=== PATIENT | female | born 1975 | race American Indian/Alaskan Native ===

== ENCOUNTER 2024-07-18 03:06 | Inpatient (IN) | payer BC, SELFPAY ==
[2024-07-18] VITALS (15 sets, daily range): BP systolic 103–131; BP diastolic 54–87; PULSE 64–93; RESP 15–24; TEMP 36.6–36.9; O2SAT 94–99; BMI 38.4; BMI 39.7
--- NOTE | 2024-07-18 03:21 | PD.EDABDPN ---
ED Abdominal Pain RME/HPI General Chief Complaint: Abdominal Pain Stated complaint: ABDOMINAL PAIN Time seen by provider: 07/18/24 03:24 Arrival date/time: 07/18/24 03:06 RME / HPI RME / HPI narrative: This section includes all my notes and documentations, including HPI, PE, and ED course. River Soriano MD HPI: 48 y/o female with SHx section, Cholecystectomy, and Hysterectomy and Hx of Leukemia, Gall Bladder Disease, Diverticulosis, Obstructive Bowel, Hiatal Hernia, Gastroesophageal Reflux Disease, Obesity, and Kidney Stones presents to ED c/o upper abdominal pain that radiates up to her chest and vomiting x approximately 4 days with vomiting. Last BM was the day before yesterday and has not been passing gas since. Denies hematuria, dysuria, or difficulty urinating. No other complaints. ROS: All negative except as documented in HPI. Physical Exam: General: Alert and oriented. In severe pain. Eyes: Conjunctivae and lids clear. ENT: No nasal congestion. Neck: Supple. Heart: RRR. Lungs: No respiratory distress. Good air movement. No rhonchi, wheezing, rales. Abdomen: Severe abdominal tenderness, worse in the upper abdominal area. Normal bowel sounds. No distension. No rebound or guarding. Back: No CVA tenderness. Skin: Warm and dry. Neuro: Alert and oriented X 3. I ordered IV fluid, Zofran, Toradol, Dilaudid, Rocephin, and diagnostic tests. At 6 AM on 07/18/2024, the care of the patient was transferred to Dr. BERGERON. River Soriano MD Related Data Home Medications ?Medication ?Instructions ?Recorded ?Confirmed albuterol sulfate 90 mcg/actuation 2 puff inhalation Q6HR PRN 04/20/16 12/30/20 aerosol inhaler (Proventil HFA) WHEEZING #0 inhalations budesonide 0.5 mg/2 mL suspension 0.5 mg inhalation BID PRN asthma 12/30/20 12/30/20 for nebulization cetirizine 10 mg tablet (Zyrtec) 10 mg PO QDAY 12/30/20 12/30/20 fluticasone propionate 50 2 spray intranasal QDAY PRN 12/30/20 12/30/20 mcg/actuation nasal Allergy Symptoms spray,suspension ibuprofen 600 mg tablet 600 mg PO BID PRN Pain 12/30/20 12/30/20 omeprazole 20 mg capsule,delayed 20 mg PO QDAY 12/30/20 12/30/20 release peg 15 %-potass chl 0.17 %-propyl 1 ea intranasal BID 12/30/20 12/30/20 gly 20 %-sodium chl 0.22 % nasal gel (Rhinase) Previous Rx's ?Medication ?Instructions ?Recorded meloxicam 7.5 mg tablet 7.5 mg PO QDAY #7 tabs 07/25/23 Allergies Allergy/AdvReac Type Severity Reaction Status Date / Time banana Allergy Severe ANAPHYLAXSI Verified 07/25/23 05:55 S doxycycline Allergy Severe Hives Verified 07/25/23 05:55 erythromycin base Allergy Severe RASH/VOMITI Verified 07/25/23 05:55 NG kiwi Allergy Severe Anaphylaxis Verified 07/25/23 05:55 latex Allergy Severe Hives Verified 07/25/23 05:55 lidocaine Allergy Severe Hives Verified 07/25/23 05:55 melon Allergy Severe Anaphylaxis Verified 07/25/23 05:55 nut - unspecified Allergy Severe Anaphylaxis Verified 07/25/23 05:55 peach Allergy Severe Anaphylaxis Verified 07/25/23 05:55 Penicillins Allergy Severe Hives Verified 07/25/23 05:55 prilocaine Allergy Severe Hives Verified 07/25/23 05:55 shellfish derived Allergy Severe Anaphylaxis Verified 07/25/23 05:55 Review of Systems Review of Systems Systems Reviewed: All systems reviewed, normal except as documented Past Medical History Past Medical History NEUROLOGIC: Positive Neurological Disorders, Migraine and Head Trauma CARDIAC: Positive Cardiac Disorders and Varicose Veins RESPIRATORY: Positive Asthma GASTROINTESTINAL: Positive Gastrointestinal Disorders, Gall Bladder Disease, Diverticulosis, Obstructive Bowel, Hiatal Hernia, Gastroesophageal Reflux Disease and Obesity GENITOURINARY: Positive Genitourinary Disorders and Kidney Stones REPRODUCTIVE: Positive Previous Pregnancies ENT: Positive Head Trauma OTHER HISTORY: Positive Chicken Pox and Cancer (leukemia tx at [facility]) Family History FAMILY HISTORY: Positive Family Psychiatric Problems, Family Respiratory Disorders, Family Cardiac Disorders, Family Gastrointestinal Problems, Family Surgery and Family Anesthesia Reaction Surgical History SURGICAL: Positive Abdominal Surgery, Hysterectomy and Section ED Exam Narrative Physical exam: Refer to HPI above Course Quality Measures none Orders Category Date Time Status Saline [Insert IV] NOW Care 07/18/24 03:[address] abdomen pelvis wo con Stat Exams 07/18/24 03:32 Taken US gall bladder Stat Exams 07/18/24 03:32 Taken Alcohol, Blood Medical Stat Lab 07/18/24 03:49 Completed Amylase Stat Lab 07/18/24 03:49 Completed Bilirubin,Direct Stat Lab 07/18/24 03:49 Completed CBC Stat Lab 07/18/24 03:49 Completed CMP [Comprehensive Metabolic Panel] Stat Lab 07/18/24 03:49 Completed Drug Screen,Urine Stat Lab 07/18/24 04:29 Completed Lipase Stat Lab 07/18/24 03:49 Completed Magnesium Stat Lab 07/18/24 03:49 Completed UA, C/S IF [Urinalysis, C/S if Indicated] Stat Lab 07/18/24 04:29 Completed Urine Culture Stat Lab 07/18/24 04:29 Received 1gm x 1 (ED) Med 07/18/24 05:29 Ordered cefTRIAXone/D5w 1gm IV premix [Rocephin/D5w 1gm IV premix] 50 ml IV X1 HYDROmorphone INJ [Dilaudid Inj] Med 07/18/24 03:31 Discontinued 2 mg IVP X1 ONE Ketorolac Inj [Toradol Inj] Med 07/18/24 03:31 Discontinued 30 mg IVP X1 ONE Ondansetron Inj [Zofran Inj] Med 07/18/24 03:31 Discontinued 4 mg IV X1 ONE Sodium Chloride 0.9% 1000 ml [Ns] 1,000 ml Med 07/18/24 03:31 Discontinued IV 999 mls/hr Vital Signs Vital signs: Vital Signs Temperature 98.5 F 07/18/24 04:05 Abdominal Pain MDM MDM Narrative MDM Narrative:: Scribe Attestation: I, Caitlyn Kovacs, am scribing for and in the presence of Dr. Soriano. Provider Notation: Although this document has been carefully reviewed, there may still be some phonetic and other typographical errors.? These errors are purely grammatical due to imperfections in the software program and should not be construed in any way to? compromise the substance of the patient's medical care during this visit. 48 y/o female with SHx section, Cholecystectomy, and Hysterectomy and Hx of Leukemia, Gall Bladder Disease, Diverticulosis, Obstructive Bowel, Hiatal Hernia, Gastroesophageal Reflux Disease, Obesity, and Kidney Stones presents to ED c/o upper abdominal pain that radiates up to her chest and vomiting x approximately 4 days. Patient data External records reviewed:: [facility] previous records (Prior ED records from 07/25/23 reviewed. Patient was seen for Chest wall pain.) Clinical information provided by:: patient Social determinants that could affect healthcare access:: none Patient has the following chronic illnesses:: Migraine, Varicose Veins, Asthma, Gall Bladder Disease, Diverticulosis, Obstructive Bowel, Hiatal Hernia, Gastroesophageal Reflux Disease, Obesity, Kidney Stones How is presenting disease/condition affected by chronic disease/condition?: exacerbated by Evaluation data The following diagnostics were reviewed and interpreted by me:: lab results and radiology exam(s) Lab and/or radiology exams considered but not ordered:: None Interpretation Summary: Complete diagnostic test results pending. Medications / Prescriptions Medications or Prescriptions considered but not ordered:: None Medication administrations:: Medication Administration History Discontinued Medications Hydromorphone HCl (Hydromorphone Inj 2 Mg/Ml Vial) 2 mg IVP X1 ONE Stop: 07/18/24 03:32 Last Admin: 07/18/24 04:08 Dose: 2 mg Documented By: MESSI Sodium Chloride (Ns) 1,000 mls @ 999 mls/hr IV .Q1H1M ONE Stop: 07/18/24 04:31 Last Admin: 07/18/24 04:04 Dose: 999 mls/hr Documented By: MESSI Ketorolac Tromethamine (Ketorolac Inj 30 Mg/Ml Vial) 30 mg IVP X1 ONE Stop: 07/18/24 03:32 Last Admin: 07/18/24 04:05 Dose: 30 mg Documented By: MESSI Ondansetron HCl (Ondansetron Inj 2 Mg/Ml Inj 2 Ml) 4 mg IV X1 ONE; Protocol Stop: 07/18/24 03:32 Last Admin: 07/18/24 04:07 Dose: 4 mg Documented By: MESSI IV fluid, Zofran, Toradol, Dilaudid, Rocephin. Consultations Consultation(s) initiated? (list below): No Diagnosis Differential diagnosis abdominal pain: abdominal pain, acute appendicitis, calculus of kidney, constipation, diverticulitis, endometriosis, gastroenteritis, pancreatitis and small bowel obstruction Most likely diagnosis given after review of the tests above:: Complete diagnostic test results pending Admission Indicated Admission indicated?: not indicated Explain why admission is indicated or not indicated:: Complete diagnostic test results pending. Admission Request Was there a request for admission?: No Disposition Plan Disposition Plan: other (specify) (Care of the patient was transferred to Dr. Bergeron. ) Discharge Plan Prescriptions/Referrals Prescriptions/Med Rec: No Action albuterol sulfate [Proventil HFA] 6.7 GM HFA aerosol inhaler 2 puff Inhalation Q6HR PRN (Reason: WHEEZING) Qty: 0 cetirizine [Zyrtec] 10 mg Tablet 10 mg PO QDAY omeprazole 20 mg capsule,delayed release(DR/EC) 20 mg PO QDAY budesonide 0.5 mg/2 mL suspension for nebulization 0.5 mg INHALATION BID PRN (Reason: asthma) ibuprofen 600 mg tablet 600 mg PO BID PRN (Reason: Pain) fluticasone propionate 50 mcg/actuation spray,suspension 2 spray INTRANASAL QDAY PRN (Reason: Allergy Symptoms) Rhinase 15-0.17-20-0.22 % Gel 1 ea INTRANASAL BID meloxicam 7.5 mg tablet 7.5 mg PO QDAY Qty: 7 0RF Referrals: Yves)Connie PA-C [Primary Care Provider] - In 1 week Problem List Clinical Impression: Abdominal pain Patient/Caregiver Discharge Instructions Print Language: Irish
--- NOTE | 2024-07-18 03:32 | XR_ITS ---
Examination: Abdomen sonogram, Limited Date and time of exam: July 18, 2024 0430 hours INDICATIONS: Onset abdominal pain today Technique: Real-time balbuena scale transabdominal sonographic images of the upper abdomen obtained. Findings: Gallbladder absent Common bile duct 0.7 cm Pancreatic head 2.4 cm Liver 16.1 cm irregular contour fatty infiltration Normal hepatopedal portal venous flow Patent IVC IMPRESSION: Primary hepatocellular disease
--- NOTE | 2024-07-18 03:32 | XR_ITS ---
Examination: CT abdomen and pelvis without contrast. Coronal 3-D reconstructions. Sagittal 2-D reconstructions. Date and time of exam:July 18, 2024 0501 hours Comparison 11/15/2022 INDICATIONS: Abdominal pain today, history umbilical hernia CTDI: vol (mGy): 14 DLP: (mGycm): 754 Technique: Axial images of the abdomen have been obtained, 3 mm slice thickness Intravenous contrast material has not been administered. Low dose protocols were performed. One or more of the following dose reduction techniques were used; automated exposure control, adjustment of the mA and/or KV according to patient size, use of iterative reconstruction technique. Findings: Diffuse fatty infiltration throughout the liver, no focal liver or splenic lesion Absent gallbladder No pancreatic or adrenal mass No renal or ureteral calculi Numerous fluid distended small bowel loops 4 mm fat-containing umbilical hernia Normal appendix Incarcerated small bowel in a right pelvic hernia defect, the defect at least 5 cm Urinary bladder intact Osseous structures intact IMPRESSION: High-grade mechanical small bowel obstruction secondary to incarcerated small bowel in a right anterior pelvic wall hernia defect
[2024-07-18 03:56] LABS: Basophils # (Auto) 0.1 Thou/mm3 (0.0-0.2); Basophils % (Auto) 0 % (0-2.5); Eosinophils % (Auto) 0 % (0-10); Hemoglobin 15.5 g/dL (12.0-16.0); Immature Granulocytes % (Auto) 0 % (0-0); Immature Granulocytes Auto 0.08 Thou/mm3 (0.00-0.00); Lymphocytes # (Auto) 1.2 Thou/mm3 (1.0-4.8); Lymphocytes % (Auto) 6 % (10-50); Mean Corpuscular HGB Conc 35.2 g/dl (31.0-37.0); Mean Corpuscular Hemoglobin 29.1 pg (25.0-35.0); Mean Corpuscular Volume 83 fL (80-100); Monocytes # (Auto) 0.4 Thou/mm3 (0.0-0.8); Monocytes % (Auto) 2 % (0-12); Neutrophils % (Auto) 91 % (37-80); Nucleated Red Blood Cell % 0 /100 WBC (0); Platelet Count 460 Thou/mm3 (140-440); RDW Standard Deviation 36.7 fL (36.4-46.3); Red Blood Count 5.33 Miln/mm3 (4.00-5.20); White Blood Count 18.8 Thou/mm3 (3.6-11.0)
[2024-07-18] MEDS: SODIUM CHLORIDE 0.9% 1000 ML 1,000 ML 999 ML IV (04:04)
[2024-07-18] MEDS: KETOROLAC INJ 30 MG/ML VIAL IVP ×2 (04:05→20:20)
[2024-07-18] MEDS: ONDANSETRON INJ 2 MG/ML INJ 2 ML 4 MG IV ×2 (04:07→13:35)
[2024-07-18] MEDS: HYDROmorphone INJ 2 MG/ML VIAL IVP (04:08)
[2024-07-18 04:33] LABS: Collection Type, Urine Clean Catch; RBC,Urine 0 /hpf (0-3)
[2024-07-18 04:43] LABS: Alanine Aminotransferase 23 U/L (10-49); Albumin, Serum 5.3 gm/dL (3.5-5.0); Albumin/Globulin Ratio 1.7 (1.2-2.2); Alcohol, Blood Medical < 3.0 mg/dL (0-10.0); Alkaline Phosphatase 97 U/L (46-116); Anion Gap 9 (7-16); Aspartate Amino Transferase 17 U/L (0-34); BUN/Creatinine Ratio 11 Ratio (12-20); Bilirubin,Direct 0.3 mg/dL (0.0-0.3); Bilirubin,Total 0.8 mg/dL (0.3-1.2); Blood Urea Nitrogen 9 mg/dL (9-23); Calcium 10.4 mg/dL (8.3-10.6); Calcium (Corrected) 10.4 mg/dL (8.5-10.1); Chloride 100 mMol/L (98-107); Creatinine (Component) 0.8 mg/dL (0.6-1.3); Estimated Creatinine Clearance 91.5 mL/min (>60); Globulin 3.2 gm/dL (2.3-3.5); Glucose 159 mg/dL (74-106); Lipase 35 U/L (12-53); Magnesium 2.2 mg/dL (1.6-2.6); Osmolality,Calculated 271 (275-295); Potassium 3.9 mMol/L (3.4-5.1); Sodium 135 mMol/L (136-145); Total Protein 8.5 gm/dL (5.7-8.2); eGFR > 60 See Note
[2024-07-18 04:55] LABS: Amorphous Crystals,Urine Present (Absent); Bacteria,Urine 1+; Bilirubin,Urine 1+ (Negative); Blood,Urine Trace (Negative); Color,Urine Orange (Lt Yel-Yel); Glucose, Urine Trace (Negative); Ketones,Urine 1+ (Negative); Leukocyte Esterase,Urine Negative (Negative); Nitrite,Urine Negative (Negative); PH,Urine 5.5 (5.0-7.0); Protein,Urine 1+ (Neg - Trace); Specific Gravity,Urine 1.028 (1.001-1.035); Squamous Epithelial Cell,Urine 3 /hpf (0-5); WBC,Urine 1 /hpf (0-5)
[2024-07-18 04:56] LABS: Amylase 71 U/L (30-118)
[2024-07-18 05:17] LABS: Amphetamine/Methamp Scrn,U Negative (Negative); Barbiturate Screen,Urine Negative (Negative); Benzodiazepines Screen,Urine Negative (Negative); Benzoylecgonine Screen, Ur Negative (Negative); Fentanyl Screen,Urine Negative (Negative); Opiate Screen,Urine Negative (Negative); THC Screen,Urine Negative (Negative)
[2024-07-18 05:20] LABS: Clarity,Urine Turbid (Clear/Hazy); Culture Indicated,Urine Yes
--- NOTE | 2024-07-18 06:20 | PD.EDADDENDU ---
Emergency Room Addendum Addendum Narrative: 0600: Care assumed from Dr. Soriano, the previous shift emergency physician. Past medical, surgical, social and family history reviewed. Vitals and home medications reviewed. I will assume the care of the patient at this time, pending diagnostics tests and final disposition. Please refer to the emergency department record for history and examination from initial visit.? Physical exam by me shows patient is still in pain distress. 1028: Patient is still in pain distress. Will put a NG tube and admit the patient. 1030: Discussed test HPI, PMHx, lab, radiology results and/or management with Dr. Chapman. Will consult an admission to the hospitalist. 1033: Discussed test HPI, PMHx, lab, radiology results and/or management with resident working with the hospitalist. Will admit for further evaluation and management. Accepts patient for admission. RADIOLOGY Procedure(s): US gall bladder Accession Number(s): [id number] cc: Zachary(Connie Chawla PA-C; River Soriano MD; David Cook MD~ Examination: Abdomen sonogram, Limited Date and time of exam: July 18, 2024 0430 hours INDICATIONS: Onset abdominal pain today Technique: Real-time balbuena scale transabdominal sonographic images of the upper abdomen obtained. Findings: Gallbladder absent Common bile duct 0.7 cm Pancreatic head 2.4 cm Liver 16.1 cm irregular contour fatty infiltration Normal hepatopedal portal venous flow Patent IVC IMPRESSION: Primary hepatocellular disease Dictated By: David Cook MD Procedure(s): CT abdomen pelvis wo [facility] Accession Number(s): [id number] cc: [facility]Formerly [facility], [facility]rynthe [facility] of auroraConnie Thompson PA-C; River Soriano MD; David Cook MD~ Examination: CT abdomen and pelvis without contrast. Coronal 3-D reconstructions. Sagittal 2-D reconstructions. Date and time of exam:July 18, 2024 0501 hours Comparison 11/15/2022 INDICATIONS: Abdominal pain today, history umbilical hernia CTDI: vol (mGy): 14 DLP: (mGycm): 754 Technique: Axial images of the abdomen have been obtained, 3 mm slice thickness Intravenous contrast material has not been administered. Low dose protocols were performed. One or more of the following dose reduction techniques were used; automated exposure control, adjustment of the mA and/or KV according to patient size, use of iterative reconstruction technique. Findings: Diffuse fatty infiltration throughout the liver, no focal liver or splenic lesion Absent gallbladder No pancreatic or adrenal mass No renal or ureteral calculi Numerous fluid distended small bowel loops 4 mm fat-containing umbilical hernia Normal appendix Incarcerated small bowel in a right pelvic hernia defect, the defect at least 5 cm Urinary bladder intact Osseous structures intact IMPRESSION: High-grade mechanical small bowel obstruction secondary to incarcerated small bowel in a right anterior pelvic wall hernia defect Dictated By: David Cook MD
--- NOTE | 2024-07-18 06:49 | PRELIM_ITS ---
Right upper quadrant abdominal ultrasound. July 18, 2024 0430 hours Clinical history: RUQ tenderness (s/p cholecystectomy) Technique: Grayscale and color flow images of the right upper quadrant are provided. Hepatic and portal veins were also imaged with color flow images. Comparison: No prior study is available for comparison. Findings: The liver is measuring 16cm, heterogeneous with hyperechoic irregular contours. No cystic lesions are seen. No intrahepatic biliary ductal dilatation. Status post cholecystectomy. The common bile duct is prominent in caliber at 7mm likely related to the postoperative changes. No calculi in the common bile duct lumen identified. The pancreas is unremarkable to the extent visualized. The pancreatic head is measuring 2.4cm Impression: Status post cholecystectomy. Prominent common bile duct without intraluminal calculi. Liver steatosis and cirrhotic changes. Report Electronically Signed By: Issac Goldman 07/18/2024 6:48:36 AM [EST]
[2024-07-18 07:49] LABS: Lactate (Lactic Acid) 1.2 mMol/L (0.4-2.0)
--- NOTE | 2024-07-18 07:51 | PRELIM_ITS ---
CT scan of the abdomen and pelvis without intravenous contrast (axial sections with sagittal and coronal reformats) July 18, 2024 0501 hours Clinical History: ABD PAIN Comparison: No prior study is available for comparison. Findings: The lung bases are clear. Fatty infiltration of the liver is noted. The gallbladder is surgically absent Punctate nonobstructing right renal calculus The pancreas, spleen and adrenals are unremarkable on this noncontrast study. There is large ventral hernia in the right inferior anterior abdominal wall containing decompressed, wall thickened small bowel loops with surrounding fat stranding and small amount of free fluid. Dilated fluid filled small bowel loops measuring up to 3.5cm and demonstrating air-fluid levels are seen in the mid and lower abdomen with transition point at the level of neck of the ventral hernia as described above. The appendix is within normal limits (images [id number], series 2). There are occasional colonic diverticula without evidence of diverticulitis. There is no mesenteric or retroperitoneal adenopathy. The urinary bladder is unremarkable. The uterus appears small in size, could be related to the subtotal hysterectomy There is no free fluid or free air. The osseous structures are unremarkable. Impression: Findings consistent with large incarcerated ventral hernia in the right inferior anterior abdominal wall accompanied by small bowel obstruction with transition at the hernial neck site. Recommend clinical correlation and follow- up. Other findings as described above. Report Electronically Signed By: Issac Goldman 07/18/2024 7:50:40 AM [EST]
[2024-07-18] MEDS: cefTRIAXone/D5w 1gm IV premix 1 GM/50 ML BAG IV (08:03)
[2024-07-18 08:51] LABS: Procalcitonin 0.06 ng/ml (0.0-0.49)
--- NOTE | 2024-07-18 11:08 | PD.SURCONS ---
HPI Consult details Consult date: 07/18/24 Reason for consultation narrative: Small bowel obstruction History of present illness: 48-year-old female presented to the emergency department with worsening abdominal pain. Her pain started 2 days ago that was intermittent initially. Since last night her pain has become persistent and progressively worse. She has had nausea and vomiting, but denies fever, chills, diarrhea or constipation. Her last bowel movement was 2 days ago. She was admitted to the hospital 2 years ago with similar symptoms that was managed nonoperatively. She underwent CT scan that revealed right lower quadrant hernia with incarcerated small bowel causing small bowel obstruction, her CT scan 2 years ago had similar findings. She has had colonoscopy 4 years ago that revealed severe diverticular disease. She denies significant weight loss, changes in bowel habits or history of blood per rectum. Review of Systems Constitutional Constitutional: Denies chills and Denies fever(s) Cardiovascular Cardiovascular: Denies chest pain Respiratory Respiratory: Denies cough Gastrointestinal Gastrointestinal: Reports abdominal pain, Reports nausea and Reports vomiting Genitourinary Genitourinary: Denies difficulty voiding Hematologic/Lymphatic Hematologic/Lymphatic: Denies easy bleeding and Denies easy bruising Past Medical History Surgical History OTHER SURGICAL HX: Laparoscopic cholecystectomy, NATHALY/BSO, , incisional hernia repair, umbilical hernia repair Meds Home Medications and Allergies Home Medications ?Medication ?Instructions ?Recorded ?Confirmed ?Type albuterol sulfate 90 mcg/actuation 2 puff inhalation Q6HR PRN 04/20/16 07/18/24 History aerosol inhaler (Proventil HFA) WHEEZING #0 inhalations budesonide 0.5 mg/2 mL suspension 0.5 mg inhalation BID PRN asthma 12/30/20 07/18/24 History for nebulization cetirizine 10 mg tablet (Zyrtec) 10 mg PO QDAY 12/30/20 07/18/24 History ibuprofen 600 mg tablet 600 mg PO BID PRN Pain 12/30/20 07/18/24 History omeprazole 20 mg capsule,delayed 20 mg PO QDAY 12/30/20 07/18/24 History release Allergies Allergy/AdvReac Type Severity Reaction Status Date / Time banana Allergy Severe ANAPHYLAXSI Verified 07/25/23 05:55 S doxycycline Allergy Severe Hives Verified 07/25/23 05:55 erythromycin base Allergy Severe RASH/VOMITI Verified 07/25/23 05:55 NG kiwi Allergy Severe Anaphylaxis Verified 07/25/23 05:55 latex Allergy Severe Hives Verified 07/25/23 05:55 lidocaine Allergy Severe Hives Verified 07/25/23 05:55 melon Allergy Severe Anaphylaxis Verified 07/25/23 05:55 nut - unspecified Allergy Severe Anaphylaxis Verified 07/25/23 05:55 peach Allergy Severe Anaphylaxis Verified 07/25/23 05:55 Penicillins Allergy Severe Hives Verified 07/25/23 05:55 prilocaine Allergy Severe Hives Verified 07/25/23 05:55 shellfish derived Allergy Severe Anaphylaxis Verified 07/25/23 05:55 iodine AdvReac Mild Anaphylaxis Verified 07/19/24 10:30 Exam Vital Signs Temp Pulse Resp BP Pulse Ox O2 Del Method 98.5 F 75 15 115/68 97 Room Air 07/18/24 08:09 07/18/24 10:00 07/18/24 10:00 07/18/24 10:00 07/18/24 10:00 07/18/24 08:09 Constitutional Constitutional: no acute distress Routine Abdominal Exam Comments: Abdomen is soft and nondistended. She has right lower quadrant incisional hernia that is partially reducible. No evidence of peritonitis or overlying skin changes Results Results: Laboratory Laboratory results: results reviewed Results: Imaging Imaging narrative: CT scan of abdomen pelvis images reviewed, radiologist interpretation noted Assessment & Plan Problem List (1) SBO (small bowel obstruction): Status: Acute Plan Keep n.p.o. with IV fluids and NGT decompression. I will follow. Her symptoms improve she will require elective hernia repair as an outpatient. If symptoms do not improve she will require an operation with possible small bowel resection.
--- NOTE | 2024-07-18 11:25 | PD.RESHP ---
Documentation for date of: 07/18/24 HPI History of Present Illness Chief complaint: Abdominal Pain and Vomiting History of present illness: HPI: Patient is a 48-year-old female with a history of asthma, GERD, hepatic adenoma, white blood cell disorder currently being investigated, multiple abdominal surgeries and prior history of SBO in 2022 presenting today with a chief complaint of abdominal pain and vomiting. Patient states that her abdominal pain has been ongoing intermittently for the past few months but acutely worsened 4 days ago. Described as generalized, cramping, associated with nausea and vomiting, no radiation and aggravated by movement, no relieving factors. Since Wednesday she has not passed any flatus or had a bowel movement. 2 days ago she had multiple episodes of vomiting greater than 10 described as first clear liquid and progressed to a brown color. Denies any fever, sick contacts, recent travel and trauma. Of note patient had a previous admission in 2022 for SBO which was conservatively managed with NG tube on suction and IV fluids. Patient was unable to undergo small bowel series due to her allergy to iodine. ED course: BP 131/85, pulse 84, RR 23, temp 98.5 F, SpO2 97% on room air. Lab significant for lactic acid 1.2, Hb 15.5, HCT 44, wbc 18.8 Abdomen/pelvis CT showed high-grade mechanical small bowel obstruction secondary to incarcerated small bowel and right anterior pelvic wall hernia defect. Gallbladder ultrasound showed primary hepatocellular disease. In the ED patient received 1 L normal saline IV fluid bolus, ketorolac 30 Mg IV x 1, ondansetron 4 Mg IV x 1, hydromorphone 2 Mg IV x 1, ceftriaxone 1 g IV x 1. Patient will be admitted for treatment and management of small bowel obstruction secondary to incarcerated abdominal wall hernia. General surgery, Dr Chapman consulted and closely following the case. Past Medical History Past Medical History Comments PMH COMMENT: Past medical history: Asthma GERD Blood disorder?currently being worked up Migraines Hepatic adenoma Medication list: Zyrtec as needed Albuterol inhaler as needed Budesonide inhaler 1 puff twice daily Past surgical history: Cholecystectomy LSCS x 3 Hysterectomy Incisional hernia repair Umbilical hernia repair Allergies: Multiple food allergies listed in the EMR Penicillin?hives Doxycycline?hives Erythromycin?vomiting Social history: Occupational History: Currently unemployed. 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 Education Level: Attended college, did not graduate Marital Status: . With 4 kids Tobacco use: Denies ETHO use: Denies Illicit drug use: Denies Social History Note: lives with Family History: Dad?DE, CAD Mom?hypothyroid, ulcerative colitis Sister?SLE, hepatocellular carcinoma, breast cancer Brother?hemophilia A Daughter?scoliosis Daughter?juvenile idiopathic Grandmother?colon cancer Exam Vital Signs Temp Pulse Resp BP Pulse Ox O2 Del Method 98.5 F 75 15 115/68 97 Room Air 07/18/24 08:09 07/18/24 10:00 07/18/24 10:00 07/18/24 10:00 07/18/24 10:00 07/18/24 08:09 Narrative Exam Constitutional Alert, oriented x 3 and mild distress. Middle-age female with NGT in situ connected to intermittent suction HEENT Vision grossly intact. Patent nares. Trachea midline Respiratory Chest normal on inspection and clear auscultation bilaterally Cardiovascular S1 and S2 audible, RRR. No murmurs carotid bruit. No gross JVD. Abdominal Soft, obese and generalized tenderness to light palpation. Right lower quadrant mass palpated, irreducible. Bowel sounds absent Genitourinary No bladder tenderness, no flank pain. Normal to palpation Musculoskeletal Extremities tone within normal limits. No LE edema. Neurological CN II - XII grossly intact. Extremity motor and sensation grossly intact. Skin Warm, dry and intact. No apparent lesions. Psychiatric Patient has good affect, is cooperative Results: Labs 07/19/24 05:02 07/19/24 05:02 Labs: Short CBC 07/18/24 Range/Units 03:49 WBC 18.8 H (3.6-11.0) Thou/mm3 Hgb 15.5 (12.0-16.0) g/dL Hct 44.0 (36.0-46.0) % Plt Count 460 H (140-440) Thou/mm3 BMP 07/18/24 03:49 Sodium 135 L Potassium 3.9 Chloride 100 Carbon Dioxide 26.0 BUN 9 Creatinine 0.8 Glucose 159 H Calcium 10.4 Liver Function 07/18/24 Range/Units 03:49 Total Bilirubin 0.8 (0.3-1.2) mg/dL Direct Bilirubin 0.3 (0.0-0.3) mg/dL AST 17 (0-34) U/L ALT 23 (10-49) U/L Alkaline Phosphatase 97 (46-116) U/L Albumin 5.3 H (3.5-5.0) gm/dL Urine 07/18/24 Range/Units 04:29 Urine Color Novice A (Lt Yel-Yel) Urine Clarity Turbid A (Clear/Hazy) Urine pH 5.5 (5.0-7.0) Ur Specific Icard 1.028 (1.001-1.035) Urine Protein 1+ A (Neg - Trace) Urine Glucose (UA) Trace (Negative) Quality Measures Quality Measures none Medications Home Medications and Allergies Home Medications ?Medication ?Instructions ?Recorded ?Confirmed ?Type albuterol sulfate 90 mcg/actuation 2 puff inhalation Q6HR PRN 04/20/16 07/18/24 History aerosol inhaler (Proventil HFA) WHEEZING #0 inhalations budesonide 0.5 mg/2 mL suspension 0.5 mg inhalation BID PRN asthma 12/30/20 07/18/24 History for nebulization cetirizine 10 mg tablet (Zyrtec) 10 mg PO QDAY 12/30/20 07/18/24 History ibuprofen 600 mg tablet 600 mg PO BID PRN Pain 12/30/20 07/18/24 History omeprazole 20 mg capsule,delayed 20 mg PO QDAY 12/30/20 07/18/24 History release Allergies Allergy/AdvReac Type Severity Reaction Status Date / Time banana Allergy Severe ANAPHYLAXSI Verified 07/25/23 05:55 S doxycycline Allergy Severe Hives Verified 07/25/23 05:55 erythromycin base Allergy Severe RASH/VOMITI Verified 07/25/23 05:55 NG kiwi Allergy Severe Anaphylaxis Verified 07/25/23 05:55 latex Allergy Severe Hives Verified 07/25/23 05:55 lidocaine Allergy Severe Hives Verified 07/25/23 05:55 melon Allergy Severe Anaphylaxis Verified 07/25/23 05:55 nut - unspecified Allergy Severe Anaphylaxis Verified 07/25/23 05:55 peach Allergy Severe Anaphylaxis Verified 07/25/23 05:55 Penicillins Allergy Severe Hives Verified 07/25/23 05:55 prilocaine Allergy Severe Hives Verified 07/25/23 05:55 shellfish derived Allergy Severe Anaphylaxis Verified 07/25/23 05:55 iodine Allergy Mild Hives Verified 07/18/24 18:24 Visit Medications Discontinued Medications Hydromorphone HCl (Hydromorphone Inj 2 Mg/Ml Vial) 2 mg IVP X1 ONE Stop: 07/18/24 03:32 Last Admin: 07/18/24 04:08 Dose: 2 mg Sodium Chloride (Ns) 1,000 mls @ 999 mls/hr IV .Q1H1M ONE Stop: 07/18/24 04:31 Last Infusion: 07/18/24 05:05 Dose: Infused Ceftriaxone Sodium/Dextrose (Rocephin/D5w 1gm Iv Premix) 1 gm in 50 mls @ 100 mls/hr IV X1 ONE Stop: 07/18/24 05:58 Last Infusion: 07/18/24 08:27 Dose: Infused Ketorolac Tromethamine (Ketorolac Inj 30 Mg/Ml Vial) 30 mg IVP X1 ONE Stop: 07/18/24 03:32 Last Admin: 07/18/24 04:05 Dose: 30 mg Ondansetron HCl (Ondansetron Inj 2 Mg/Ml Inj 2 Ml) 4 mg IV X1 ONE; Protocol Stop: 07/18/24 03:32 Last Admin: 07/18/24 04:07 Dose: 4 mg Assessment & Plan Plan Patient is a 48-year-old female with a history of asthma, GERD, hepatic adenoma, white blood cell disorder currently being investigated, multiple abdominal surgeries and prior history of SBO in 2022 presenting today with a chief complaint of abdominal pain and vomiting. Patient will be admitted for treatment and management of small bowel obstruction secondary to incarcerated abdominal wall hernia. Small bowel obstruction secondary to incarcerated pelvic wall hernia History of SBO 2022 History of multiple abdominal surgeries Patient presented with abdominal pain, vomiting and no bowel movement or flatus for the past 3 days. On exam patient has generalized tenderness to palpation of the abdomen and a mass in the lower quadrant. Abdomen/pelvis CT showed high-grade mechanical small bowel obstruction secondary to incarcerated small bowel and right anterior pelvic wall hernia defect. Plan: ? N.p.o. ? Normal saline IV fluid at 100 cc/h ? NG tube on intermittent suction ? Patient unable to undergo small bowel series due to allergy to iodine ? If conservative management of SBO fails, for inpatient surgical management and possible small bowel resection as per general surgery. ? General Surgeon, Dr Ari consulted and closely following the case. Appreciate recommendations. Leukocytosis Hypercalcemia On admission WBC 18.8. Calcium 10.4 Currently patient says that she is being worked up by heme oncologist in [place] for possible multiple myeloma. Asthma Home medication albuterol and budesonide inhaler. Plan: ? DuoNebs every 4 hourly as needed Hepatic adenoma Patient has follow-up in [place]. Continue outpatient management Health maintenance: Disposition: NG tube on intermittent suction. Conservative management of SBO. Diet: N.p.o. Lines: pIVs GI Prophylaxis: Pantoprazole Thrombo Prophylaxis: Heparin Code status: FULL CODE Plan of care discussed with Attending Dr. Yolanda Mckeon MD PGY 1 Disclaimer: This note was dictated by speech recognition. Minor errors in nutrition services worker may be present due to voice recognition software.. Attending Provider Attestation/Addendum I have examined the patient, reviewed labs and imaging findings, discussed the case with the resident(s), and reviewed entered orders. I agree with the plan of care as outlined in this note, with these additional summaries/recommendations: Patient seen at bedside. She endorses severe abdominal pain and has not passed flatulence or had a bowel movement. Patient endorses a previous episode of similar symptoms that resolved on its own. CT abdomen pelvis was obtained which showed high-grade mechanical small bowel obstruction secondary to incarcerated small bowel in the right anterior pelvic wall. General surgery consulted, recommendations appreciated. N.p.o., IV fluids, and NG tube to low intermittent suction. Patient is apparently allergic to contrast and unable to obtain small bowel series. Per general surgery if symptoms do not improve will require inpatient surgical intervention versus outpatient if symptoms resolved. Continue pain management and as needed antiemetics. Leukocytosis present and most likely reactive. Repeat hematology and chemistry panel in AM. Dr. Yolanda MD
--- NOTE | 2024-07-18 11:44 | XR_ITS ---
Examination: AP chest single view TECHNIQUE: Portable AP sitting chest single view Date and time: July 18, 2024 1326 hours INDICATIONS: Post orogastric tube placement. FINDINGS: Orogastric tube is in the stomach, the tip is below the level of the film Normal heart size No pneumonia IMPRESSION: Orogastric tube satisfactory position
[2024-07-18] MEDS: MORPHINE SULF INJ 10 MG/ML VIAL 2 MG IVP (13:35)
[2024-07-18] MEDS: ACETAMINOPHEN IVPB 1,000 MG/100 ML VIAL 250 MG IV (17:42)
[2024-07-18] MEDS: PANTOPRAZOLE INJ 40 MG VIAL IVP (17:42)
[2024-07-18] MEDS: SODIUM CHLORIDE 0.9% 1000 ML 1,000 ML 100 ML IV (17:43)
--- NOTE | 2024-07-18 19:30 | XR_ITS ---
Examination: Small bowel series 3 views Exam date and time: July 19, 1999 2516 hours INDICATIONS: Abdominal pain and distention today, small bowel obstruction pattern secondary to incarcerated small bowel in the right anterior pelvic wall hernia defect on CT examination today TECHNIQUE AND FINDINGS: Patient received 120 cc Gastrografin through the orogastric tube with 1 minute and 45 minute and 1 hour 30 minute films Contrast present in distended small bowel loops IMPRESSION: Small bowel obstruction pattern Recommend follow-up abdomen films 1:00 AM, 3:00 AM, 7:00 AM
[2024-07-18] MEDS: HEPARIN SOD INJ 5000 UNIT/ML VIAL SC (20:17)
--- NOTE | 2024-07-18 20:28 | XR_ITS ---
Examination: Abdomen AP single view Technique: AP portable supine abdomen, single view Exam date and time: July 18, 20242035 hours INDICATIONS: Reposition orogastric tube. FINDINGS: Orogastric tube tip in the stomach satisfactory position Multiple air distended small bowel loops IMPRESSION: Orogastric tube tip in body of the stomach satisfactory position
[2024-07-19] VITALS (10 sets, daily range): BP systolic 105–130; BP diastolic 65–85; PULSE 74–95; RESP 15–99; TEMP 36–36.6; O2SAT 95–99
--- NOTE | 2024-07-19 01:00 | XR_ITS ---
Examination: Abdomen AP single view Technique: AP portable supine abdomen, single view Exam date and time: July 19, 2024 0054 hours INDICATIONS: Abdominal pain and distention this week, small bowel obstruction pattern on CT abdomen and pelvis July 18, 2024, 3 hour delayed film FINDINGS: Contrast distended small bowel loops in the central abdomen IMPRESSION: Small bowel obstruction pattern
--- NOTE | 2024-07-19 03:00 | XR_ITS ---
Examination: Abdomen AP single view Technique: AP portable supine abdomen, single view Exam date and time: July 19, 2024 0251 hours INDICATIONS: Abdominal pain and distention this week, small bowel obstruction pattern on CT abdomen and pelvis July 18, 2024, 5 hour delayed film post small bowel series today FINDINGS: Contrast in distended small bowel loops IMPRESSION: Small bowel obstruction pattern, additional delayed films will be obtained
[2024-07-19 05:42] LABS: Basophils # (Auto) 0.1 Thou/mm3 (0.0-0.2); Basophils % (Auto) 0 % (0-2.5); Eosinophils # (Auto) 0.1 Thou/mm3 (0.0-0.5); Eosinophils % (Auto) 1 % (0-10); Hematocrit 42.5 % (36.0-46.0); Immature Granulocytes % (Auto) 0 % (0-0); Immature Granulocytes Auto 0.04 Thou/mm3 (0.00-0.00); Lymphocytes # (Auto) 1.4 Thou/mm3 (1.0-4.8); Lymphocytes % (Auto) 10 % (10-50); Mean Corpuscular HGB Conc 32.9 g/dl (31.0-37.0); Mean Corpuscular Hemoglobin 28.7 pg (25.0-35.0); Mean Corpuscular Volume 87 fL (80-100); Monocytes # (Auto) 0.9 Thou/mm3 (0.0-0.8); Monocytes % (Auto) 7 % (0-12); Neutrophils # (Auto) 11.5 Thou/mm3 (1.8-7.7); Neutrophils % (Auto) 83 % (37-80); Nucleated Red Blood Cell % 0 /100 WBC (0); Platelet Count 337 Thou/mm3 (140-440); RDW Standard Deviation 39.8 fL (36.4-46.3); Red Blood Count 4.87 Miln/mm3 (4.00-5.20); White Blood Count 13.9 Thou/mm3 (3.6-11.0)
[2024-07-19] MEDS: ONDANSETRON INJ 2 MG/ML INJ 2 ML 4 MG IV (05:45)
[2024-07-19] MEDS: SODIUM CHLORIDE 0.9% 1000 ML 1,000 ML 100 ML IV ×2 (05:45→17:11)
--- NOTE | 2024-07-19 05:48 | PC.NURSE ---
Pt vomited amounting 400cc greenish colored, pt NG tube still on clamped for XR bowel series, pt was given nausea meds.
[2024-07-19] MEDS: KETOROLAC INJ 30 MG/ML VIAL IVP (06:04)
[2024-07-19 06:08] LABS: Glucose Estimated Average 108 mg/dL (80-131); Hemoglobin A1C 5.4 % Hgb (4.8-6.0)
[2024-07-19 06:15] LABS: Alanine Aminotransferase 23 U/L (10-49); Albumin, Serum 4.3 gm/dL (3.5-5.0); Albumin/Globulin Ratio 1.6 (1.2-2.2); Alkaline Phosphatase 83 U/L (46-116); Anion Gap 12 (7-16); Aspartate Amino Transferase 14 U/L (0-34); BUN/Creatinine Ratio 16 Ratio (12-20); Bilirubin,Total 0.9 mg/dL (0.3-1.2); Blood Urea Nitrogen 13 mg/dL (9-23); Calcium 8.8 mg/dL (8.3-10.6); Calcium (Corrected) 8.8 mg/dL (8.5-10.1); Carbon Dioxide 25.8 mMol/L (20.0-31.0); Cardiac Risk Estimate 2.4 RATIO (3.7-5.6); Chloride 107 mMol/L (98-107); Cholesterol 134 mg/dL (132-200); Creatinine (Component) 0.8 mg/dL (0.6-1.3); Estimated Creatinine Clearance 93.4 mL/min (>60); Globulin 2.7 gm/dL (2.3-3.5); Glucose 123 mg/dL (74-106); HDL Cholesterol 57 mg/dL (40-60); LDL Cholesterol,Calculated 52 mg/dL (0-130); Magnesium 2.2 mg/dL (1.6-2.6); Osmolality,Calculated 289 (275-295); Phosphorous 2.8 mg/dL (2.4-5.1); Potassium 4.4 mMol/L (3.4-5.1); Sodium 145 mMol/L (136-145); Triglycerides 124 mg/dL (30-150); eGFR > 60 See Note
--- NOTE | 2024-07-19 07:00 | XR_ITS ---
Examination: Abdomen AP single view Technique: AP portable supine abdomen, single view Exam date and time: July 09 04/16/2024, 0717 hours INDICATIONS: Abdominal pain and distention today, small bowel obstruction pattern on CT abdomen and pelvis yesterday FINDINGS: Contrast in distended small bowel loops There is some contrast in the colon on the current study IMPRESSION: Small bowel obstruction pattern, but incomplete Recommend follow-up abdomen films 9:00 AM 12 noon
--- NOTE | 2024-07-19 09:00 | XR_ITS ---
Examination: Abdomen AP single view Technique: AP portable supine abdomen, single view Exam date and time: July 19, 2024 0932 hours INDICATIONS: Abdominal pain and distention this week, 11.5 hour delayed film post small bowel series FINDINGS: Contrast remains in distended small bowel loops Minimal contrast in the colon IMPRESSION: Relatively high-grade small bowel obstruction
--- NOTE | 2024-07-19 09:18 | ESPR_ITS ---
<Statement entered by Marta Johnson MD - 07/19/24 16:13> Patient was seen and examined at bedside. She is still complaining of sore throat and throat ache because of the NG tube, she reported that she still have some nausea and vomiting. Dr Chapman was consulted he recommended to put the patient back on suction until another trial of feeding later on the day. If the patient tolerates baclofen start the patient on sips of water. - Patient's plan and care discussed with my attending, Dr. Yolanda Johnson MD Internal Medicine PGY-2 Documentation for date of: 07/19/24 Subjective Subjective Interval history: Patient was seen and examined at bedside this AM. At 5:30 AM patient had 550 cc of bilious vomiting. Patient , adequate urine output and mentation is at baseline. Patient complains of nausea and 6/10 lower abdominal pain. Abdomen x-ray at 12 PM showed high-grade partial SBO. Patient had 3 bowel movements but x-rays shows distended stomach fluid contents. Will place patient on intermittent suction, once output slows down we will clamp NG and allow sips of clear liquid. Scheduled metoclopramide 10 Mg IV every 6 hourly General surgeon, Dr Chapman consulted and closely following the case. Exam Vital Signs Temp Pulse Resp BP Pulse Ox O2 Del Method 97 F 79 18 130/65 96 Room Air 07/19/24 07:54 07/19/24 07:54 07/19/24 07:54 07/19/24 07:54 07/19/24 07:54 07/19/24 07:54 Narrative Exam Constitutional Alert, oriented x 3 and mild distress. Middle-age female with NGT in situ connected to intermittent suction HEENT Vision grossly intact. Patent nares. Trachea midline Respiratory Chest normal on inspection and clear auscultation bilaterally Cardiovascular S1 and S2 audible, RRR. No murmurs carotid bruit. No gross JVD. Abdominal Soft, obese and generalized tenderness to light palpation. Right lower quadrant mass palpated, irreducible. Bowel sounds sluggish Genitourinary No bladder tenderness, no flank pain. Normal to palpation Musculoskeletal Extremities tone within normal limits. No LE edema. Neurological CN II - XII grossly intact. Extremity motor and sensation grossly intact. Skin Warm, dry and intact. No apparent lesions. Psychiatric Patient has good affect, is cooperative Objective Labs 07/20/24 05:09 07/20/24 05:09 Labs: Laboratory Results - last 24 hr 07/19/24 05:02 WBC 13.9 H RBC 4.87 Hgb 14.0 Hct 42.5 MCV 87 MCH 28.7 MCHC 32.9 RDW Std Deviation 39.8 Plt Count 337 D Neut % (Auto) 83 H Lymph % (Auto) 10 [place] % (Auto) 7 Eos % (Auto) 1 Baso % (Auto) 0 Neut # (Auto) 11.5 H Lymph # (Auto) 1.4 [place] # (Auto) 0.9 H Eos # (Auto) 0.1 Baso # (Auto) 0.1 Immature Gran # (Auto) 0.04 H Absolute Nucleated RBC 0.00 Immature Gran % 0 Nucleated RBC % 0 Sodium 145 D Potassium 4.4 D Chloride 107 Carbon Dioxide 25.8 Anion Gap 12 BUN 13 Creatinine 0.8 Estim Creat Clear Calc 93.4 eGFR > 60 BUN/Creatinine Ratio [address] Glu mg/dL 108 Hemoglobin A1c 5.4 Calculated Osmolality 289 Calcium 8.8 D Corrected Calcium 8.8 D Phosphorus 2.8 Magnesium 2.2 Total Bilirubin 0.9 AST 14 ALT 23 Alkaline Phosphatase 83 Total Protein 7.0 Albumin 4.3 D Globulin 2.7 Albumin/Globulin Ratio 1.6 Triglycerides 124 Cholesterol 134 LDL Cholesterol, Calc 52 HDL Cholesterol 57 Cholesterol/HDL Ratio 2.4 L TSH 1.80 Quality Measures Quality Measures none Assessment & Plan Assessment Current Active Medications: Generic Name Dose Route Start Last Admin Trade Name Freq PRN Reason Stop Dose Admin Albuterol/Ipratropium 3 ml 07/18/24 15:48 Albuterol/Ipratropium (Duoneb) Rt Adeline 3 Ml Nebu INH 08/17/24 15:47 Q4HR PRN SHORTNESS OF BREATH OR WHEEZE Heparin Sodium (Porcine) 5,000 unit 07/18/24 21:00 07/18/24 20:17 Heparin Sod Inj 5000 Unit/Ml Vial SC 08/01/24 20:59 5,000 unit BID MADELINE Administration Sodium Chloride 1,000 mls @ 100 mls/hr 07/18/24 16:00 07/19/24 05:45 Ns IV 08/17/24 15:59 100 mls/hr .Q10H MADELINE Administration Ketorolac Tromethamine 30 mg 07/18/24 15:52 07/19/24 06:04 Ketorolac Inj 30 Mg/Ml Vial IVP 07/19/24 15:51 30 mg Q6HR PRN Administration PAIN SCALE 4-10(Mod-Sev Morphine Sulfate 2 mg 07/18/24 16:05 Morphine Sulf Inj 10 Mg/Ml Vial IVP 07/23/24 13:23 Q6HR PRN BREAKTHROUGH PAIN Ondansetron HCl 4 mg 07/18/24 13:24 07/19/24 05:45 Ondansetron Inj 2 Mg/Ml Inj 2 Ml IV 08/17/24 13:23 4 mg Q6HR PRN Administration NAUSEA OR VOMITING Protocol Pantoprazole Sodium 40 mg 07/18/24 16:00 07/18/24 17:42 Pantoprazole Inj 40 Mg Vial IVP 08/17/24 15:59 40 mg QDAY MADELINE Administration Plan Patient is a 48-year-old female with a history of asthma, GERD, hepatic adenoma, white blood cell disorder currently being investigated, multiple abdominal surgeries and prior history of SBO in 2022 presenting today with a chief complaint of abdominal pain and vomiting. Patient will be admitted for treatment and management of small bowel obstruction secondary to incarcerated abdominal wall hernia. Small bowel obstruction secondary to incarcerated pelvic wall hernia - resolving History of SBO 2022 History of multiple abdominal surgeries Patient presented with abdominal pain, vomiting and no bowel movement or flatus for the past 3 days. On exam patient has generalized tenderness to palpation of the abdomen and a mass in the lower quadrant. Abdomen/pelvis CT showed high-grade mechanical small bowel obstruction secondary to incarcerated small bowel and right anterior pelvic wall hernia defect. Patient complains of nausea and 6/10 lower abdominal pain. Abdomen x-ray at 12 PM showed high-grade partial SBO. Patient had 3 bowel movements but x-rays shows distended stomach fluid contents. Will place patient on intermittent suction, once output slows down we will clamp NG and allow sips of clear liquid. Scheduled metoclopramide 10 Mg IV every 6 hourly General surgeon, Dr Chapman consulted and closely following the case. Plan: ? Clear liquid ? Normal saline IV fluid at 100 cc/h ? NG tube on intermittent suction - Once output from NG tube slows down, we will clamp NG and allow sips of clear liquid. - Metoclopramide 10 Mg IV every 6 hourly - Night team will reassess patient for possible removal of NG tube. ? General Surgeon, Dr Chapman consulted and closely following the case. Appreciate recommendations. Leukocytosis Hypercalcemia On admission WBC 18.8. Calcium 10.4 Currently patient says that she is being worked up by heme oncologist in [place] for possible multiple myeloma. Asthma Home medication albuterol and budesonide inhaler. Plan: ? DuoNebs every 4 hourly as needed Hepatic adenoma Patient has follow-up in [place]. Continue outpatient management Health maintenance: Disposition: Pending resolution of SBO. NGT on suction. IV pain medication, IV metoclopraimide Diet: Clear liquids Lines: pIVs GI Prophylaxis:Pantoprazole Thrombo Prophylaxis: Heparin Code status: FULL CODE Plan of care discussed with Attending Dr. Guerrero and PGY2 Dr. Alex Mckeon MD PGY 1 Disclaimer: This note was dictated by speech recognition. Minor errors in it sales representative may be present due to voice recognition software. Attending Provider Attestation/Addendum I have examined the patient, reviewed labs and imaging findings, discussed the case with the resident(s), and reviewed entered orders. I agree with the plan of care as outlined in this note, with these additional summaries/recommendations: Patient seen at bedside. No acute overnight events. Patient continues to endorse intractable abdominal pain requiring IV pain medicines. She reports she has passed flatulence but has still not had a bowel movement. Small bowel series continues to show high-grade obstruction but now incomplete. General surgery following, recommendations appreciated. Continue NG tube to low intermittent suction, n.p.o., IV fluids, IV as needed pain medicines antiemetics. Leukocytosis present which is most likely reactive. Chemistry panel relatively stable. Repeat hematology and chemistry panel in AM. Please see residents note for additional details and management. Dr. Yolanda MD
--- NOTE | 2024-07-19 10:00 | PC.SS ---
Follow up note: Pending surgical consultation. Pt is NPO. Pt has NG tube. Has abdominal series. Pt is on IV fluids. Pt will return home upon dc.
[2024-07-19] MEDS: Milk Of Magnesia Susp 30 ML UDC NG (10:20)
[2024-07-19] MEDS: PANTOPRAZOLE INJ 40 MG VIAL IVP (10:20)
[2024-07-19] MEDS: bisacodyL 10 MG SUPP PR (10:20)
[2024-07-19] MEDS: HEPARIN SOD INJ 5000 UNIT/ML VIAL SC ×2 (10:20→20:38)
--- NOTE | 2024-07-19 11:56 | PD.SURPROG ---
Documentation for date of: 07/19/24 Subjective Subjective Narrative: Patient is seen and examined. Her pain is slightly better than yesterday. She started passing flatus and had a small bowel movement Exam Vital Signs Temp Pulse Resp BP Pulse Ox O2 Del Method 97 F 79 18 130/65 96 Room Air 07/19/24 07:54 07/19/24 07:54 07/19/24 07:54 07/19/24 07:54 07/19/24 07:54 07/19/24 07:54 Constitutional Constitutional: no acute distress Routine Abdominal Exam Comments: Abdomen is soft and nondistended. She has tenderness to deep palpation, no rebound tenderness or peritonitis. Hernia is reducible today Assessment & Plan Assessment Additional comments: Small bowel obstruction, clinically improving. Small bowel series shows some contrast in the colon Plan Clamped NG tube. Increase ambulation
--- NOTE | 2024-07-19 12:00 | XR_ITS ---
Examination: Abdomen AP single view Technique: AP portable supine abdomen, single view Exam date and time: July 20, 1999 2512 0 3:00 PM INDICATIONS: Abdominal distention this week, 14 hour delayed film post small bowel series FINDINGS: Contrast remains in significantly distended small bowel loops Some contrast is present in the colon IMPRESSION: High-grade but incomplete small bowel obstruction
--- NOTE | 2024-07-19 14:31 | PC.NURSE ---
made aware pt had a BM this AM. MD ordered to start pt on clear liquid diet and d/c NG tube.
--- NOTE | 2024-07-19 15:52 | PC.SS ---
SS met with patient regarding her d/c plan. Pt is alert/oriented. Pt was admitted for SBO. Pt confirmed demographic and contact information is correct on facesheet. Pt resides with , brother, and 3 grandkids. Pt ambulates independently without assistance or DME. Pt is ok with all ADLs. Patient?s pharmacy of choice is [facility] [address] on [address]. Pt named her , Jah Lucas medical decision maker if she is unable. Patient?s choice is to return home upon d/c. Pt states she is not diabetic. Pt states she follows specialist physicians at [facility] (Oncologlist, Hemotologist, GI, and for Liver Mass). Pt states she followed up with PCP 1-2 months ago. D/C plan: Return home Next of Kin: Jah Lucas, , phone# [phone] PCP: Dr. Connie Sharma from [facility] Address: Correct on facesheet
[2024-07-19] MEDS: METOCLOPRAMIDE INJ 5 MG/ML VIAL 2 ML 10 MG IVP ×2 (17:11→23:59)
[2024-07-20] VITALS: BP 122/77; PULSE 88; RESP 17; TEMP 36.6; O2SAT 98
[2024-07-20 04:00] VITALS: BP 129/75; PULSE 81; RESP 16; TEMP 36.6; O2SAT 96
[2024-07-20] MEDS: SODIUM CHLORIDE 0.9% 1000 ML 1,000 ML 100 ML IV (05:27)
[2024-07-20 06:20] LABS: Basophils # (Auto) 0.1 Thou/mm3 (0.0-0.2); Basophils % (Auto) 0 % (0-2.5); Eosinophils # (Auto) 0.1 Thou/mm3 (0.0-0.5); Eosinophils % (Auto) 1 % (0-10); Hematocrit 40.8 % (36.0-46.0); Hemoglobin 13.7 g/dL (12.0-16.0); Immature Granulocytes % (Auto) 0 % (0-0); Immature Granulocytes Auto 0.04 Thou/mm3 (0.00-0.00); Lymphocytes # (Auto) 2.1 Thou/mm3 (1.0-4.8); Lymphocytes % (Auto) 15 % (10-50); Mean Corpuscular HGB Conc 33.6 g/dl (31.0-37.0); Mean Corpuscular Hemoglobin 29.3 pg (25.0-35.0); Mean Corpuscular Volume 87 fL (80-100); Monocytes # (Auto) 0.8 Thou/mm3 (0.0-0.8); Monocytes % (Auto) 6 % (0-12); Neutrophils # (Auto) 10.9 Thou/mm3 (1.8-7.7); Neutrophils % (Auto) 78 % (37-80); Nucleated Red Blood Cell % 0 /100 WBC (0); Platelet Count 458 Thou/mm3 (140-440); RDW Standard Deviation 39.6 fL (36.4-46.3); Red Blood Count 4.68 Miln/mm3 (4.00-5.20)
[2024-07-20 06:25] LABS: Alanine Aminotransferase 20 U/L (10-49); Albumin, Serum 4.4 gm/dL (3.5-5.0); Albumin/Globulin Ratio 1.6 (1.2-2.2); Alkaline Phosphatase 79 U/L (46-116); Anion Gap 12 (7-16); Aspartate Amino Transferase 11 U/L (0-34); BUN/Creatinine Ratio 23 Ratio (12-20); Bilirubin,Total 0.7 mg/dL (0.3-1.2); Blood Urea Nitrogen 16 mg/dL (9-23); Carbon Dioxide 25.2 mMol/L (20.0-31.0); Chloride 109 mMol/L (98-107); Creatinine (Component) 0.7 mg/dL (0.6-1.3); Estimated Creatinine Clearance 106.7 mL/min (>60); Globulin 2.8 gm/dL (2.3-3.5); Glucose 126 mg/dL (74-106); Magnesium 2.2 mg/dL (1.6-2.6); Osmolality,Calculated 293 (275-295); Phosphorous 2.2 mg/dL (2.4-5.1); Potassium 3.6 mMol/L (3.4-5.1); Sodium 146 mMol/L (136-145); Total Protein 7.2 gm/dL (5.7-8.2); eGFR > 60 See Note
--- NOTE | 2024-07-20 06:34 | PC.NURSE ---
Pt IV 20g to right AC discontinued r/t leaking, pt showered after declined for reinsertion of IV
--- NOTE | 2024-07-20 07:39 | XR_ITS ---
Examination: Abdomen AP single view Technique: AP portable supine abdomen, single view Exam date and time: 07/20/2024 0811 hours INDICATIONS: Abdominal pain and distention this week small bowel obstruction pattern on CT abdomen pelvis July 18, 2024 FINDINGS: Contrast in the colon Air distended small bowel loops IMPRESSION: Incomplete small bowel obstruction
[2024-07-20 08:00] VITALS: BP 133/84; PULSE 78; RESP 16; TEMP 36.4; O2SAT 97
[2024-07-20] MEDS: PANTOPRAZOLE 40 MG TABLET PO (08:40)
[2024-07-20] MEDS: HEPARIN SOD INJ 5000 UNIT/ML VIAL SC (08:40)
--- NOTE | 2024-07-20 09:03 | PD.SURPROG ---
Documentation for date of: 07/20/24 Subjective Subjective Narrative: Patient is seen and examined. She is feeling much better. Her NG tube was removed. She is tolerating liquid diet without nausea or vomiting and had multiple bowel movements Exam Vital Signs Temp Pulse Resp BP Pulse Ox O2 Del Method 98 F 81 16 129/75 96 Room Air 07/20/24 04:00 07/20/24 04:00 07/20/24 04:00 07/20/24 04:00 07/20/24 04:00 07/20/24 04:00 Constitutional Constitutional: no acute distress Routine Abdominal Exam Comments: Abdomen is soft and nondistended. Minimal tenderness to deep palpation. Hernia appears to be reducible Assessment & Plan Assessment Additional comments: Small bowel obstruction resolving Plan Advance to soft diet. She can be discharged after lunch. Follow-up with Dr Chapman in 2 weeks, please call [phone] for an appointment.
[2024-07-20] MEDS: NAPH,KPH MBDB 1 PACKET (1.5 GM) PO (10:53)
[2024-07-20 12:00] VITALS: BP 116/77; PULSE 80; RESP 16; TEMP 36.4; O2SAT 99
[2024-07-20 13:17] VITALS: PULSE 83; RESP 18; RESP 97; O2SAT 97
--- NOTE | 2024-07-20 15:42 | PD.RESDS ---
Planned Discharge Date 07/20/24 DS: Providers Provider Date of admission: 07/18/24 11:23 Primary care physician: Connie Sharma([facility])TOMAS Admitting Provider: Tito Guerrero MD Attending Provider on Admission: Tito Guerrero MD Consults: 07/18/24 10:34 Consult to General Surgery Stat Comment: Consulting Provider: Kenya Chapman Attending Provider on DC: Marta Johnson MD Discharging Provider: Marta Johnson MD DS: Diagnosis Problem List Completed Was Problem List Reviewed/Reconciled?: Yes Hospital Course Hospital Course Hospital course: A 38-year-old female patient reportedly with past medical history of asthma, GERD, hepatic adenoma, 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 On examination patient was found to have elevated WBCs of 18.8, CT scan showed high-grade mechanical small bowel obstruction secondary to incarcerated small bowel and right anterior pelvic wall hernia defect. Patient was admitted and was put under conservative treatment including NG tube insertion and suction to decompress the stomach, patient was continued on IV fluids, a general surgery was consulted. Chest x-ray follow-through was done which showed possible partial obstruction of the small bowel, contrast was seen in the rectum. General surgery recommended to start the patient diet in which was tolerated well NG tube was removed and the patient was recommended to do elective surgery Will be done by Dr Chapman within 1 to 2 weeks from discharge. Patient today deemed to be clinically stable for discharge and was given the following instructions Follow up with your PCP within 1 week from discharge Follow-up with your surgeon Dr. Chapman within 1-2 weeks from discharge for possible elective surgery, please call [phone] for an appointment. Use medications as prescribed In case of worsening of your symptoms please return to the ED Avoid constipation and increased fiber intake Discharging diagnosis #Small bowel obstruction #Leukocytosis #Hypercalcemia #Hepatic adenoma #History of asthma Status at Discharge Functional status at discharge: independent ambulation Overall status at discharge: patient is progressing back to baseline Time Spent with Patient Time attestation: Total time spent providing and/or coordinating discharge services: Time spent: Greater than 30 minutes Exam Vital Signs Temp Pulse Resp BP Pulse Ox O2 Del Method 97.6 F 83 18 116/77 97 Room Air 07/20/24 12:00 07/20/24 13:17 07/20/24 13:17 07/20/24 12:00 07/20/24 13:17 07/20/24 12:00 Narrative Exam GEN: AOx3, able to speak full sentences HEENT: NC/AC, PERRLA, oral mucosa moist, neck supple CVS: RRR, S1-S2 present, no murmurs appreciated RESP: CTAB GI: soft, mildly distended, mild discomfort on palpation, NBS MSK: able to move all 4 limbs, no lower extremity edema SKIN: warm and dry [employer]ICE PRESIDENT: CN II-XII and Sensation grossly intact. Discharge Plan Plan Patient Disposition: HOME (Self Care) Patient condition on transfer: Stable and Benefits outweigh risks Care Plan Goals: Follow up with your primary care provider within 1 week from discharge Follow-up with your surgeon Dr. Chapman within 1-2 weeks from discharge for possible elective surgery, please call [phone] for an appointment. Use medications as prescribed In case of worsening of your symptoms please return to the ED Avoid constipation and increased fiber intake Prescriptions/Referrals Prescriptions/Med Rec: Continued albuterol sulfate [Proventil HFA] 6.7 GM HFA aerosol inhaler 2 puff Inhalation Q6HR PRN (Reason: WHEEZING) Qty: 0 cetirizine [Zyrtec] 10 mg Tablet 10 mg PO QDAY omeprazole 20 mg capsule,delayed release(DR/EC) 20 mg PO QDAY budesonide 0.5 mg/2 mL suspension for nebulization 0.5 mg INHALATION BID PRN (Reason: asthma) Discontinued ibuprofen 600 mg tablet 600 mg PO BID PRN (Reason: Pain) Referrals: Connie Sharma PA-C ([facility]) [Primary Care Provider] - Kenya Chapman MD [Physician] - Patient/Caregiver Discharge Instructions Discharge Activity: activity as tolerated Education Materials: Small Bowel Obstruction Print Language: Frisian Stand Alone Forms: [employer] Award Info., Patient Portal Info Letter Discharge Order Discharge Orders: Discharge (Routine); Ordered 07/20/24 Ordered By: Marta Johnson Quality Discharge Quality Measures VTE prophylaxis MD Attestestation MD Attestation I have examined the patient, reviewed labs and imaging findings, discussed the case with the resident(s), and reviewed entered orders. I agree with the plan of care as outlined in this note. Time Spent: [address] Yolanda MD
[2024-07-20 16:00] VITALS: BP 110/81; PULSE 80; RESP 16; TEMP 36.7; O2SAT 97
== END 2024-07-20 18:24 | disposition home or self-care (01) | DRG 389 ==
LOC: SERX 06:03 → SERHOLD 11:36 → S3SX 12:33
PROVIDERS: Emergency Medicine; Admitting Provider Student in an Organized Health Care Education/Training Program; Emergency Provider Emergency Medicine; PCP Nurse Practitioner Family; Visit Provider Student in an Organized Health Care Education/Training Program
DX: K56.699 Other intestinal obstruction unspecified as to partial versus complete obstruction (principal); K43.6 Other and unspecified ventral hernia with obstruction, without gangrene; J45.909 Unspecified asthma, uncomplicated; K21.9 Gastro-esophageal reflux disease without esophagitis; D13.4 Benign neoplasm of liver; E83.52 Hypercalcemia; G43.909 Migraine, unspecified, not intractable, without status migrainosus; D72.829 Elevated white blood cell count, unspecified; Z56.0 Unemployment, unspecified; Z91.041 Radiographic dye allergy status; Z79.51 Long term (current) use of inhaled steroids; Z85.6 Personal history of leukemia; Z87.19 Personal history of other diseases of the digestive system; Z87.442 Personal history of urinary calculi; Z90.710 Acquired absence of both cervix and uterus; Z88.0 Allergy status to penicillin; Z88.8 Allergy status to other drugs, medicaments and biological substances
CPT/HCPCS: 36415; 74018; 74176; 74250; 76705; 80053; 80061; 80307; 80320; 81001; 82150; 82248; 83036; 83605; 83690; 83735; 84100; 84145; 84443; 85025; 87040; 87086; 96361; 96365; 99285; J0131; J0696; J1171; J1644; J1885; J2270; J2405; J2470; J2765; J7030; Q9963; A9270; G0480